=== PATIENT | male | born 1965 | race Caucasian/White ===

== ENCOUNTER 2018-11-06 14:04 | Emergency (ER) | payer OTHER, SELFPAY ==
[2018-11-06 14:10] VITALS: BP 156/97; PULSE 79; RESP 22; TEMP 36.8; O2SAT 99
--- NOTE | 2018-11-06 14:50 | ED.NEUROSD ---
HPI - Neuro Symptoms/Deficit General Chief Complaint: Neuro Symptoms/Deficit Stated Complaint: Rt. side numbness Time Seen by Provider: 11/06/18 14:17 Source: patient Mode of arrival: ambulatory Limitations: no limitations History of Present Illness HPI Narrative: This is a 52-year-old male who comes to the emergency for complaint of a numb sensation or decreased sensation in his right upper extremity, torso and leg. Patient states that it started about 4 days ago no trauma. He states he was hiking earlier and walking on the beach over some logs and sort of tweaked his back he has a little bit of lower back discomfort but that was the only started incident. Symptoms did not start immediately afterwards. Patient does have a history of multiple sclerosis he was diagnosed many years ago. He was placed on regular medication but does not always take it regularly. Patient states his typical symptoms are visual disturbances. Patient has not had any headache, no vision changes for the last 6 months. He has had any facial droop, no difficulty with speech. No weakness, no difficulty with movement. He denies any chest pain, shortness of breath, no nausea, no vomiting. He has had 1 polyp found in his bladder once before but otherwise no other major medical issues. He denies any other surgeries. He does smoke occasional alcohol. He lives in [place] but is visiting the area for educational purposes. he does follow with a physician for his multiple sclerosis in [place]. On Anticoagulants: No Related Data Home Medications Medication Instructions Recorded Confirmed teriflunomide [Aubagio] 14 mg PO DAILY 11/06/18 11/06/18 Previous Rx's Medication Instructions Recorded prednisone See Rx Instructions .ROUTE 11/06/18 .COMPLEX #15 each Allergies Allergy/AdvReac Type Severity Reaction Status Date / Time No Known Drug Allergies Allergy Verified 11/06/18 14:20 Review of Systems Review of Systems ROS Unobtainable: All systems reviewed & are unremarkable except as noted in HPI and below Constitutional Denies chills, Denies fever(s), Denies headache(s), Denies lethargy and Denies weakness Eyes Denies blurry vision and Denies change in vision ENT Ears, Nose, Mouth, and Throat: Denies vertigo, Denies dizziness, Denies headache(s), Denies neck pain, Denies disequilibrium and Denies other (facial droop) Cardiovascular Denies chest pain, Denies syncope, Denies irregular heart rhythm, Denies lightheadedness, Denies palpitations and Denies dyspnea Respiratory Denies chest congestion, Denies cough and Denies dyspnea Gastrointestinal Gastrointestinal: Denies abdominal pain, Denies change in bowel habits, Denies diarrhea, Denies nausea and Denies vomiting Genitourinary Denies hematuria, Denies flank pain, Reports urinary hesitancy (chronically), Denies urinary incontinence and Denies urinary urgency Musculoskeletal Denies abnormal gait, Reports back pain (mild low back), Denies muscle weakness, Denies neck pain, Reports numbness, Denies radiating pain into limb and Reports tingling Integumentary/Breasts Denies rash Neurologic Denies abnormal movements, Denies abnormal speech, Denies abnormal gait, Denies confusion, Denies vertigo, Denies dizziness, Denies syncope, Denies headache(s), Denies focal weakness, Reports numbness, Denies sensory deficit, Reports tingling, Reports paresthesias, Denies disequilibrium and Denies weakness Psychiatric Denies confusion Endocrine Denies palpitations [facility] Medical History (Updated 11/06/18 @ 15:13 by Marialuisa Rosa DO) Bladder polyp (Chronic) Multiple sclerosis (Chronic) Social History Smoking Status: Current every day smoker Social History (Updated 11/06/18 @ 15:08 by Marialuisa Rosa DO) Smoking Status: Current every day smoker alcohol intake: current substance use type: does not use Exam Narrative Exam Narrative: GEN: well nourished, well appearing male, alert and oriented x 3, patient appears to be in no acute distress. HEENT: Atraumatic, pupils are equal round reactive to light, extraocular movements are intact, nares are clear, TMs are clear with no fluid, there is no conjunctival pallor. Throat is clear without any exudates, erythema, tonsillar enlargement or uvular deviation, no facial droop. HEART: Regular rate and rhythm without murmur, clicks, rubs. pulses equal bilateral upper extremities. LUNGS:Lungs clear to auscultation, no wheezes, rales, crackles, chest moves symmetrically ABD:bowel sounds normal, soft, non-tender, no guarding, rebound, rigidity, no masses noted, no hepatosplenomegaly :No CVA tenderness BACK: No cervical, thoracic or lumbar vertebral point tenderness. Patient has normal range of motion. Patient's gait is normal. Rectal exam is deferred. Muscle strength is 5/5 in lower extremities, DTRs are 2/4 upper and and lower extremities. MSCL: Non-tender, no muscle atrophy NEURO:CN 2-12 intact, sensation normal, finger nose finger test normal, heel morrison test normal, patient has sensation to light touch in all extremities on the face. He states it feels maybe a little different on the right upper and lower extremity. Initial Vital Signs Initial Vital Signs: Vital Signs Temperature 98.3 F 11/06/18 14:10 Pulse Rate 79 11/06/18 14:10 Respiratory Rate 22 11/06/18 14:10 Blood Pressure 156/97 H 11/06/18 14:10 Pulse Oximetry 99 11/06/18 14:10 Scores NIH Stroke Scale Level of Conciousness: Alert, keenly responsive Ask month/age: Answers both questions correctly. Open/close eyes, close hand: Performs both tasks correctly Best gaze horizontal: Normal Visual marino: No visual loss Facial palsy: Normal symetrical movement Left arm drift: No drift for full 10 sec Right arm drift: No drift for full 10 sec Left leg drift: No drift for full 10 sec Right leg drift: No drift for full 10 sec Limb ataxia: Absent Sensory on face/arms/legs: Mild to moderate sensory loss, can tell touch Best language: No aphasia, normal Dysarthria: Normal Extinction or inattention: No abnormality Total NIH Stroke scale score: 1 Course Orders Ordered: ED Orders 11/06/18 14:24 Urine Drug Screen, Rapid Stat 11/06/18 15:17 Complete Blood Count AUTO DIFF Stat Comprehensive Metabolic Panel Stat Vital Signs - 8 hr 11/06/18 14:10 11/06/18 16:38 Temperature 98.3 F Pulse Rate 79 89 Respiratory Rate 22 17 Blood Pressure 156/97 H Blood Pressure [Left Arm] 138/107 H Pulse Oximetry 99 100 MDM - Neuro Symptoms/Deficit Lab Data Result diagrams: 11/06/18 15:17 11/06/18 15:17 Lab Results 11/06/18 11/06/18 Range/Units 15:17 15:17 WBC 10.4 (4.5-11.0) X10^3/uL RBC 5.46 (4.5-5.9) X10^6/uL Hgb 16.0 (13.5-17.5) g/dL Hct 47.7 (41-53) % MCV 87.4 (80-100) fL MCH 29.2 (26-34) PG MCHC 33.4 (30-36) % RDW 14.4 (11.6-14.8) % Plt Count 309 (150-400) X10^3/uL Neut % (Auto) 61.5 (50-75) % Lymph % (Auto) 27.9 (25-40) % [place] % (Auto) 6.2 (3-14) % Eos % (Auto) 3.8 (2-4) % Baso % (Auto) 0.6 (0-2) % Neut # (Auto) 6400 (8281-0117) /uL Lymph # (Auto) 2900 (4452-4464) /uL [place] # (Auto) 600 (0-900) /uL Eos # (Auto) 400 (0-450) /uL Baso # (Auto) 100 (0-100) /uL Sodium 138 (137-145) mmol/L Potassium 4.4 (3.4-5.1) mmol/L Chloride 104 (98-107) mmol/L Carbon Dioxide 24 (22-32) mmol/L BUN 15 (9-20) mg/dL Creatinine 0.90 (0.66-1.25) mg/dL Estimated GFR > 60.0 (>60) mL/min BUN/Creatinine Ratio 16.7 (6-22) Glucose 86 (70-100) mg/dL Calcium 9.7 (8.4-10.2) mg/dL Total Bilirubin 0.4 (0.2-1.3) mg/dL AST 29 (17-59) IU/L ALT 28 (21-72) IU/L Alkaline Phosphatase 68 (38-126) U/L Total Protein 7.9 (6.3-8.2) g/dL Albumin 5.0 (3.5-5.0) g/dL Globulin 2.9 (1.7-4.1) g/dL Albumin/Globulin Ratio 1.7 (1.0-2.8) MDM Narrative Medical decision making narrative: Discussed with patient the my suspect he may be having a muscular sclerosis flare. Patient states he has had these in the past although typically they are vision associated. He was concerned about a pinched nerve but with upper and lower extremity being involved this is highly unlikely. His back pain is very mild he has normal movement without any tenderness with palpation and it is his low back that has causing him discomfort. Patient and I discussed doing some basic blood work to make sure electrolytes are normal. He deferred any imaging. Patient has a normal NIH stroke scale other than having some descriptive decrease in sensation as he has normal sensation to light touch. Discussed with patient my suspicion for stroke is significantly less. Patient is comfortable with this plan. Discharge Plan Departure Patient Disposition: Home Clinical Impression: Numbness on right side Discharge Date/Time: 11/06/18 17:01 Interventions: ED Discharge Assessment Last Done: 11/06/18 17:00 Instructions: DI for Multiple Sclerosis Activity Restrictions/Additional Instructions: I suspect you are having a flare or attack of your multiple sclerosis. You been given a prescription for prednisone, he may take this medication until completely gone. If you prefer you can discuss with her physician in [place] about whether or not you should start this. I would continue your other home medication as prescribed. Return to the emergency department for worsening symptoms, sudden severe headaches, new vision changes, drooping or difficulty of movement of the face, new weakness or increasing loss of sensation of your extremities, loss of bowel or bladder control or other new or concerning symptoms. Prescriptions: New prednisone 10 mg tablets,dose pack See Rx Instructions .ROUTE .COMPLEX Qty: 15 RF: 0 No Action Aubagio 14 mg Tablet 14 mg PO DAILY RF: 0
[2018-11-06 16:14] LABS: Add Manual Diff / Slide Review NO; Basophils Absolute Auto 100 /uL (0-100); Basophils Percent Auto 0.6 % (0-2); Eosinophils Absolute Auto 400 /uL (0-450); Eosinophils Percent Auto 3.8 % (2-4); Hematocrit 47.7 % (41-53); Lymphocytes Absolute Auto 2900 /uL (1100-4500); Lymphocytes Percent Auto 27.9 % (25-40); Mean Corpuscular HGB Conc 33.4 % (30-36); Mean Corpuscular Hemoglobin 29.2 PG (26-34); Mean Corpuscular Volume 87.4 fL (80-100); Monocytes Absolute Auto 600 /uL (0-900); Monocytes Percent Auto 6.2 % (3-14); Neutrophils Absolute Auto 6400 /uL (1500-7000); Neutrophils Percent Auto 61.5 % (50-75); Platelet Count 309 X10^3/uL (150-400); Red Blood Cell Count 5.46 X10^6/uL (4.5-5.9); Red Cell Distribution Width 14.4 % (11.6-14.8); White Blood Cell Count 10.4 X10^3/uL (4.5-11.0)
[2018-11-06 16:19] LABS: Alanine Aminotransferase 28 IU/L (21-72); Albumin Globulin Ratio 1.7 (1.0-2.8); Alkaline Phosphatase 68 U/L (38-126); Aspartate Aminotransferase 29 IU/L (17-59); BUN Creatinine Ratio 16.7 (6-22); Bilirubin Total 0.4 mg/dL (0.2-1.3); Blood Urea Nitrogen 15 mg/dL (9-20); Calcium 9.7 mg/dL (8.4-10.2); Carbon Dioxide 24 mmol/L (22-32); Chloride 104 mmol/L (98-107); Estimated Glomerular Filt Rate > 60.0 mL/min (>60); Globulin 2.9 g/dL (1.7-4.1); Glucose 86 mg/dL (70-100); HEMOLYSIS 15 (0-50); Potassium 4.4 mmol/L (3.4-5.1); Sodium 138 mmol/L (137-145); Total Protein 7.9 g/dL (6.3-8.2)
[2018-11-06 16:38] VITALS: BP 138/107; PULSE 89; RESP 17; O2SAT 100
== END 2018-11-06 17:01 | disposition home or self-care (01) ==
PROVIDERS: Emergency Provider Emergency Medicine
DX: R20.0 Anesthesia of skin (principal); G35 Multiple sclerosis
CPT/HCPCS: 36415; 80053; 85025; 99282; 99283